=== PATIENT | female | born 1970 | race Caucasian/White ===

== ENCOUNTER 2018-03-08 08:34 | Outpatient (CLI) | payer OTHER ==
--- NOTE | 2018-03-08 11:07 | ULT ---
ULTRASOUND HEPATIC DOPPLER: HISTORY: Elevated liver functions. COMPARISON: None. FINDINGS: Real-time, hull scale, color flow, and spectral analysis of the liver was performed. There has been prior cholecystectomy. The hepatic echotexture is normal. The liver measures 13.3 cm in length. The portal vein is patent with normal phasicity. The hepatic veins are patent and normal in consiste ncy. The common bile duct measures 5 mm. Sonographic Baca's sign is negative as expected for prior cholecystectomy. Common bile duct is nor mal. The spleen measures 9.6 cm in length. The right kidney is not interrogated. Visualized portions of the pancreas unremarkable. Aorta and I VC are unremarkable. IMPRESSION: Normal exam. POS: [facility]
== END 2018-03-08 08:35 | disposition home or self-care (01) ==
LOC: ULT 08:34
PROVIDERS: ATTEND Physician Assistant Medical
DX: R74.0 Nonspecific elevation of levels of transaminase and lactic acid dehydrogenase [LDH] (principal); R10.9 Unspecified abdominal pain
CPT/HCPCS: 76705

== ENCOUNTER 2019-04-19 09:24 | Outpatient (CLI) | payer BC ==
--- NOTE | 2019-04-19 13:23 | MRI ---
MRI BRAIN WITH AND WITHOUT CONTRAST: 04/19/2019 HISTORY: Seizures. Epilepsy. TECHNIQUE: Multiplanar, multisequence MR imaging of the brain obtained with and without contrast. FINDINGS: The axial gradient echo imaging demonstrates no evidence for intracranial hemorrhage. Coronal gradien t echo imaging is grossly unremarkable as well, slightly limited on the basis of motion. Thin section coronal FLAIR and T1 weighted imaging provided per the seizure protocol, demonstrating no discrete f ocal area of abnormal signal intensity in the region of the mesiotemporal lobe/hippocampus on either side. There is no midline shift or mass effect and no ventricular enlargement is appreciated. The imaged pa ranasal sinuses and mastoid air cells demonstrate normal signal intensity. The diffusion weighted imaging demonstrates no evidence for acute infarction. Motion artifact limits the axial T2 weighted imaging. Arterial flow voids at the axial level of the s kull base on the T2 weighted imaging appear grossly unremarkable. The whole brain post contrast imagi ng appears grossly unremarkable as well. No abnormal enhancement is noted within the brain parenchyma . IMPRESSION: Grossly unremarkable contrast enhanced brain MRI, slightly limited on the basis of motion artifact. POS: [facility]
== END 2019-04-19 09:25 | disposition home or self-care (01) ==
LOC: SCSMRI 09:24
PROVIDERS: ATTEND Psychiatry & Neurology Neurology
DX: G40.209 Localization-related (focal) (partial) symptomatic epilepsy and epileptic syndromes with complex partial seizures, not intractable, without status epilepticus (principal)
CPT/HCPCS: 70553

== ENCOUNTER 2020-03-03 14:47 | Outpatient (CLI) | payer BC ==
--- NOTE | 2020-03-03 15:20 | RAD ---
CHEST 2 VIEWS: HISTORY: Shortness of breath. COMPARISON: 09/25/2016. FINDINGS: Heart size is within normal limits. Mild increased markings bilaterally, but no confluent pneumonia, overt edema, or pleural effusion. IMPRESSION: No significant acute intrathoracic disease. POS: [facility]
== END 2020-03-03 14:48 | disposition home or self-care (01) ==
LOC: BICRAD 14:47
PROVIDERS: ATTEND Family Medicine
DX: R06.02 Shortness of breath (principal); K52.9 Noninfective gastroenteritis and colitis, unspecified
CPT/HCPCS: 71046; 83630; 87045; 87046; 87324; 87328; 87329; 87427; 87449